=== PATIENT | female | born 1995 | race Caucasian/White ===

== ENCOUNTER 2016-10-24 18:35 | Emergency (ER) | payer OTHER | END 2016-10-24 19:59 | disposition home or self-care (01) | LOC: ER1 18:35 | DX: S16.1XXA Strain of muscle, fascia and tendon at neck level, initial encounter (principal); V59.50XA Passenger in pick-up truck or van injured in collision with unspecified motor vehicles in traffic accident, initial encounter; Y92.410 Unspecified street and highway as the place of occurrence of the external cause | CPT/HCPCS: 99283 ==